=== PATIENT | female | born 1950 | race Asian ===

== ENCOUNTER 2020-01-30 13:47 | Emergency (ER) | payer OTHER ==
[~2020-01-30] VITALS: Ht 147.3 cm; Wt 39.5 kg
[2020-01-30 15:53] LABS: microscopic required? NO
[2020-01-30 16:05] LABS: UA SPECIFIC GRAVITY 1.025 (1.005-1.035); urine erythrocyte NEGATIVE (NEGATIVE)
[2020-01-30 16:05] LABS: BASOPHIL % 0.4 % (0-2); PLATELET COUNT 335 x10^3mcL (130-400)
[2020-01-30 16:06] LABS: CALCIUM 8.2 mg/dL (8.5-10.1); CARBON DIOXIDE 33.3 mmol/L (21-32); CHLORIDE SERUM 104 mmol/L (98-107); CREATININE SERUM 0.7 mg/dL (0.6-1.0); GLUCOSE SERUM 106 mg/dL (74-106); SODIUM SERUM 140 mmol/L (136-145)
[2020-01-30 16:10] LABS: ALKALINE PHOSPHATASE 69 U/L (46-116); ALT/SGPT 73 U/L (14-59); AST/SGOT 36 U/L (15-37); BILIRUBIN TOTAL 0.2 mg/dL (0.20-1.00); LIPASE 82 IU/L (73-393); TOTAL PROTEIN, SERUM 6.4 g/dL (6.4-8.2)
[2020-01-30 16:27] LABS: RED CELL DISTRIBUTION WIDTH 15.5 % (11.5-14.5)
[2020-01-30 16:48] LABS: T3 TOTAL 0.75 ng/mL
[2020-01-30 16:56] LABS: FREE T4 0.93 ng/dL (0.76-1.46); FREE THYROXINE INDEX 2.2 ug/dL (1.4-4.5); T4(THYROXINE) 6.6 ug/dL (4.7-13.3)
[2020-01-30 19:04] VITALS: BP 125/70
== END 2020-01-30 19:05 | disposition home or self-care (01) ==
LOC: ED 13:47
PROVIDERS: Emergency Medicine
DX: R10.814 Left lower quadrant abdominal tenderness (principal); G89.29 Other chronic pain; F03.90 Unspecified dementia, unspecified severity, without behavioral disturbance, psychotic disturbance, mood disturbance, and anxiety; I10 Essential (primary) hypertension; E11.9 Type 2 diabetes mellitus without complications; E78.00 Pure hypercholesterolemia, unspecified
CPT/HCPCS: 84439